=== PATIENT | female | born 1995 | race Native Hawaiian/Other Pacific Islander ===

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

== ENCOUNTER → 2017-01-13 | Outpatient (CLI) | payer OTHER | LOC: RAD 09:03 | DX: M47.896 Other spondylosis, lumbar region (principal); M43.17 Spondylolisthesis, lumbosacral region ==

== ENCOUNTER → 2017-03-27 | Outpatient (CLI) | payer OTHER | LOC: RAD 09:10 | DX: M43.17 Spondylolisthesis, lumbosacral region (principal) ==

== ENCOUNTER → 2018-01-28 | Outpatient (CLI) | payer OTHER | LOC: MRI 07:25 | DX: M40.292 Other kyphosis, cervical region (principal); M54.6 Pain in thoracic spine ==

== ENCOUNTER → 2020-06-25 | Outpatient (CLI) | payer OTHER | LOC: LAB 14:52 | PROVIDERS: ATTEND Nurse Practitioner | DX: U07.1 COVID-19 (principal) ==

== ENCOUNTER → 2020-07-09 | Outpatient (CLI) | payer OTHER ==
[2020-07-09 12:06] LABS: ABSOLUTE NEUTROPHILS 3.5 thou/uL (1.4-8.2); BASOPHILS 0.7 % (0.0-2.0); EOSINOPHILS 2.2 % (0.0-3.0); HEMOGLOBIN 13.6 gm/dL (12.0-15.0); LYMPHOCYTES 22.4 % (24.0-44.0); MCH 29.2 pg (26.0-34.0); MCHC 33.1 g/dL (28.0-37.0); MCV 88.1 fL (80.0-100.0); MONOCYTES 5.2 % (1.0-8.0); PLATELET COUNT 233 thou/uL (150-400); POLYS 69.5 % (36.0-66.0); RBC 4.65 mil/uL (4.20-5.00); RDW 13.2 % (10.5-14.5)
[2020-07-09 12:16] LABS: ALBUMIN 3.9 g/dL (3.4-5.0); CALCIUM 9.2 mg/dL (8.5-10.1); CREATININE 0.9 mg/dL (0.6-1.0); MAGNESIUM 2.2 mg/dL (1.8-2.4); POTASSIUM 4.4 mmol/L (3.5-5.1); TOTAL BILIRUBIN 0.4 mg/dL (0.2-1.0); TOTAL PROTEIN 7.6 g/dL (6.4-8.2)
== END ==
LOC: LAB 11:07
PROVIDERS: ATTEND Nurse Practitioner
DX: E55.9 Vitamin D deficiency, unspecified (principal); E53.8 Deficiency of other specified B group vitamins; Z00.00 Encounter for general adult medical examination without abnormal findings

== ENCOUNTER → 2021-06-11 | Outpatient (CLI) | payer OTHER | LOC: CAT 13:52 | PROVIDERS: ATTEND Nurse Practitioner | DX: R10.9 Unspecified abdominal pain (principal); R11.10 Vomiting, unspecified ==